=== PATIENT | female | born 1955 | race Hispanic/Latino ===

== ENCOUNTER 2016-09-07 20:07 | Observation (INO) | payer SELFPAY ==
[~2016-09-07] VITALS: Ht 162.6 cm; Wt 73.2 kg
[2016-09-07 20:14] VITALS: BP 133/91; PULSE 72; RESP 16; O2SAT 100
--- NOTE | 2016-09-07 20:42 | DRSVH ---
PROCEDURE: X-RAY CHEST ONE VIEW, PORTABLE ([id number]) INDICATIONS: chest pain TECHNIQUE: One view of the chest was acquired. COMPARISON: None. FINDINGS: Surgical changes and devices: None. Lungs and pleura: No pleural effusions or pneumothorax. Lungs are clear. Mediastinum: Mediastinal contours appear normal. Heart size is normal. Bones and chest wall: No suspicious bony lesions. Overlying soft tissues appear unremarkable. IMPRESSION: No acute cardiopulmonary disease process. Dictated by: Opal Benjamin MD, PhD on 09/07/2016 at 20:41 Approved by: Opal Benjamin MD, PhD on 09/07/2016 at 20:41
--- NOTE | 2016-09-07 20:43 | ED.REPORT ---
HPI-Chest Pain 40 and Over Date of Service Sep 07, 2016 ED Provider: Kelli Martinez MD A 61 year old female with no pertinent medical history presents to the ED complaining of chest pain and shortness of breath. The pt began experiencing these symptoms approximately one hour prior to arrival. She was speaking to family at the time, then became dizzy and shaky with the chest pain. She also admits to diaphoresis. She describes her chest pain as "pressure." The pt denies nausea, vomiting, or diarrhea. Nursing Notes Stated Complaint: CHEST PAIN, BREATHING DIFFICULTY Chief Complaint: Chest Pain Nursing Notes Reviewed: Yes Allergies: Coded Allergies: No Known Allergies (Unverified , 09/07/16) General Time Seen by MD: 20:43 Chief Complaint Chest pain Hx Obtained From: Patient, Other family... Arrived By: Walk-in Sudden in Onset?: Yes Onset Occurred: 31 - 45 minutes ago Recent Healthcare: No recent doctor visit, No recent hospitalization Similar Sx Previous: No Past Medical History Past Medical History denies Past Surgical History none reported Smoking History Unknown if Ever Smoker Ambulatory Status Independent Review of Systems Constitutional: Denies: Chills, Fever Respiratory: Reports: Shortness of breath, Denies: Non-productive cough Cardiovascular: Reports: Chest pain GI: Denies: Abdominal pain, Diarrhea, Nausea, Vomiting Musculoskeletal: Denies: Back pain, Neck pain Skin: Reports Diaphoresis, Denies Rash Neurologic: Reports: Dizziness, Shaking Complete sys rev & neg: except as marked. Physical Exam Initial Vital Signs Vital Signs (First) Date Time Temp Pulse Resp B/P Pulse Ox O2 Delivery O2 Flow Rate FiO2 09/07/16 20:14 36.5 72 16 133/91 100 Room Air 09/07/16 21:47 2 Initial VS: Reviewed General/Constitutional: Awake, Alert Respiratory / Chest: Atraumatic, Breath sounds NL, Breath sounds = bilat, No respiratory distress left sided chest tenderness with palpation Cardiovascular: Heart rate NL, Regular rhythm, Heart sounds NL Abdomen: Atraumatic, Soft, No guarding, No rebound mild epigastric tenderness Neck: Atraumatic, Supple, Full range of motion Back: Atraumatic, Full range of motion Lower Extremity / Pelvis / MS: Atraumatic, Full range of motion Skin: Atraumatic, Color NL, No rash, Warm, Dry Neurologic: Oriented X3, Speech NL, No motor deficits, No sensory deficits Psychiatric: Affect NL, Mood NL Head / Eyes: Atraumatic, Normocephalic, PERRL, EOMI ENT: Atraumatic, Airway patent, Mucous membranes moist Upper Extremity / MS: Atraumatic, Full range of motion Interpretation & Diagnostics Lab Results Interpretation Result Diagram: 09/07/16203909/07/162039 Test 09/07/16 20:40 White Blood Count 8.8th/mm3 (3.8-10.1) Red Blood Count 4.43mil/mm3 (3.90-5.20) Hemoglobin 14.4g/dL (12.0-15.6) Hematocrit 41.7% (35.0-46.0) Mean Corpuscular Volume 94.1fL (81-100) Mean Corpuscular Hemoglobin 32.5pg (27.0-35.0) Mean Corpuscular Hemoglobin Concent 34.5% (32.0-37.0) Red Cell Distribution Width 13.1% (12.3-15.4) Platelet Count 236bil/L (150-400) Neutrophils (%) (Auto) 35.9% (40-74) Lymphocytes (%) (Auto) 46.7% (14-46) Monocytes (%) (Auto) 6.0% (4-12) Eosinophils (%) (Auto) 10.4% (0-5) Basophils (%) (Auto) 0.7% (0-3) Prothrombin Time 9.9sec (8.1-12.5) Prothromb Time International Ratio 0.93ratio Activated Partial Thromboplast Time 25.7sec (22.8-33.0) Sodium Level 139mEq/L (134-144) Potassium Level 4.3mEq/L (3.5-5.2) Chloride Level 104mEq/L (97-108) Carbon Dioxide Level 21mmol/L (18-29) Blood Urea Nitrogen 18mg/dL (8-27) Creatinine 0.74mg/dL (0.57-1.00) Estimat Glomerular Filtration Rate 114mL/min (>59) Glucose Level 174mg/dL (60-99) Calcium Level 10.3mg/dL (8.5-10.1) Magnesium Level 2.0mg/dL (1.6-2.6) Total Bilirubin 0.3mg/dL (0.0-1.2) Aspartate Amino Transf (AST/SGOT) 36U/L (0-50) Alanine Aminotransferase (ALT/SGPT) 25U/L (0-32) Alkaline Phosphatase 124U/L (25-165) Total Protein 7.6g/dL (6.4-8.4) Albumin 4.0g/dL (3.4-5.0) ECG Interpretation ECG Interpretation: normal sinus rhythm with a rate of 76 Time: 20:31 Interpreted by: ED physician X-Ray Chest Interpretation Chest Xray Interpretation: IMPRESSION: No acute cardiopulmonary disease process. Dictated by: Opal Benjamin MD, PhD on 09/07/2016 at 20:41 Approved by: Opal Benjamin MD, PhD on 09/07/2016 at 20:41 Interpretation / Wet Read by: Interpret - Radiologist Re-Eval/Medical Decision Med Decision/Clinical Course This patient presents with concerning chest pain she has no significant past medical history. Her pain was relieved with nitroglycerin. The patient may also be borderline diabetic which would be an additional risk factor. The patient's initial troponin was negative. She will be admitted for rule out and further evaluation. Source of Hx: Old records Time of Eval: 22:48 Patient Status: Condition improved Re-Evaluation/Progress Note: Pt rechecked, who is resting comfortably. She is informed of her lab and radiology results, as well as the need for admission. The pt understands and agrees with the plan. All questions are addressed at this time. Consultation : Referral / Consult Name: Carolina Conde MD Consulted With: Hospitalist Call Returned at: 22:55 Unhairer: Agrees with eval, Agrees with plan, Accepts admit Note: Spoke with Dr. Conde, hospitalist, regarding pt's case. Dr. Conde agrees with the evaluation and agrees to admit the pt. Counseled Regarding: Diagnosis, Lab results, Need for admission Discharge & Departure Primary Impression: Chest pain Chest pain type: unspecified Qualified Code: R07.9 - Chest pain, unspecified Disposition: ADMITTED TO HOSPITAL Discharge Condition All VS Reviewed: Yes Condition: Stable Scribe Attestation Portions of this note were transcribed by Ronny Evans. I, Dr. Martinez personally performed the history, physical exam and medical decision-making; I reviewed and confirmed the accuracy of the information in the transcribed note. Signed by: Wade Orantes, 09/07/2016, 22:57 Kelli Martinez MD Sep 07, 2016 20:43 RONNY EVANS Sep 07, 2016 21:16
[2016-09-07 21:01] LABS: BASOPHILS % (AUTO) 0.7 % (0-3); EOSINOPHILS % (AUTO) 10.4 % (0-5); Mean Corpuscular Hemoglobin 32.5 pg (27.0-35.0); Mean Corpuscular Volume 94.1 fL (81-100); NEUTROPHILS % (AUTO) 35.9 % (40-74); Platelet Count 236 bil/L (150-400)
[2016-09-07] MEDS ORDERED: 0.9% Sodium Chloride 500 ML IV ONE (21:10)
[2016-09-07 21:12] LABS: TROPONIN T 0.01 ug/L (0.0-0.011)
[2016-09-07 21:47] VITALS: BP 125/89; PULSE 75; RESP 16; O2SAT 100
[2016-09-07 22:04] VITALS: BP 115/81; PULSE 64; RESP 18; O2SAT 99
[2016-09-07] MEDS ORDERED: Nitroglycerin 2% 1 Gm Ointment TOPICAL ONE ×2 (22:20→23:10)
[2016-09-07] MEDS ORDERED: Alum-Mag Hydrox-Simeth 30 mL Suspension PO PRN (23:10)
[2016-09-07] MEDS ORDERED: Ondansetron 2 mg/mL 2 mL Inj IVPUSH PRN (23:10)
[2016-09-07] MEDS ORDERED: Polyethylene Glycol (PEG) 17 Gm Powder PO PRN (23:10)
--- NOTE | 2016-09-07 23:19 | PCM.HPMED ---
Subjective Date of Service Sep 07, 2016 Primary Provider: Admitting Physician: Primary Care Physician: Odilia Attending Physician: Admit Status: From the Emergency Department, 23-Hour Observation, [facility] Telemetry Chief Complaint: Chest pain History of Present Illness: This is a 61-year-old female who has no significant past medical history who presents with onset earlier today about an hour ago of substernal chest pain she noted some diaphoresis with it along with some shortness of breath. He had some history of 2 or 3 episodes in the past few weeks of similar. She notes it happens when she is exerting herself. Such as walking upstairs. She has never experienced this at rest. She has had no nausea or vomiting or abdominal pain. Patient denies cough or any fevers or chills. He does note that she felt a bit lightheaded when this occurred. Review of Systems: All other review of systems are reviewed and are negative except for as in history of present illness. Allergies Coded Allergies: No Known Allergies (Unverified , 09/07/16) Home Medications None PMH Denies Surgical History Denies Family History Denies history of cardiovascular disease. Social History Hx Alcohol Use: No Hx Substance Use: No Smoking Status: Unknown if Ever Smoker Living Arrangement: with Family Exam Vital Signs Vital Sign - Last Date Time Temp Pulse Resp B/P Pulse Ox O2 Delivery O2 Flow Rate FiO2 09/07/16 22:04 64 18 115/81 99 Nasal Cannula 2 09/07/16 20:14 36.5 Exam Constitutional: Middle-aged woman in no acute distress but appears anxious Head: Normocephalic atraumatic Eyes: PERRLA DC EOMI Mouth: No lesions Neck: No adenopathy crest plus over 4 without bruits Chest: Clear to auscultation Cor: Regular rate and rhythm S1-S2 without murmur Abdomen: Soft nontender bowel sounds present Extremities: No pedal edema Skin: No rashes Psych: Appears anxious Neuro: Alert and oriented 3, motor and sensory are intact bilaterally. Lab and Diagnostics Labs Laboratory Tests 72 Hours Test 09/07/16 20:40 White Blood Count 8.8th/mm3 (3.8-10.1) Red Blood Count 4.43mil/mm3 (3.90-5.20) Hemoglobin 14.4g/dL (12.0-15.6) Hematocrit 41.7% (35.0-46.0) Mean Corpuscular Volume 94.1fL (81-100) Mean Corpuscular Hemoglobin 32.5pg (27.0-35.0) Mean Corpuscular Hemoglobin Concent 34.5% (32.0-37.0) Red Cell Distribution Width 13.1% (12.3-15.4) Platelet Count 236bil/L (150-400) Neutrophils (%) (Auto) 35.9% (40-74) Lymphocytes (%) (Auto) 46.7% (14-46) Monocytes (%) (Auto) 6.0% (4-12) Eosinophils (%) (Auto) 10.4% (0-5) Basophils (%) (Auto) 0.7% (0-3) Sodium Level 139mEq/L (134-144) Potassium Level 4.3mEq/L (3.5-5.2) Chloride Level 104mEq/L (97-108) Carbon Dioxide Level 21mmol/L (18-29) Blood Urea Nitrogen 18mg/dL (8-27) Creatinine 0.74mg/dL (0.57-1.00) Estimat Glomerular Filtration Rate 114mL/min (>59) Glucose Level 174mg/dL (60-99) Calcium Level 10.3mg/dL (8.5-10.1) Magnesium Level 2.0mg/dL (1.6-2.6) Total Bilirubin 0.3mg/dL (0.0-1.2) Aspartate Amino Transf (AST/SGOT) 36U/L (0-50) Alanine Aminotransferase (ALT/SGPT) 25U/L (0-32) Alkaline Phosphatase 124U/L (25-165) Troponin T 0.010ug/L (0.0-0.011) Total Protein 7.6g/dL (6.4-8.4) Albumin 4.0g/dL (3.4-5.0) Result Diagram: 09/07/16203909/07/162039 X-Rays, CTs and MRIs Patient Name: SENTHIL CUEVAS MR#: [id number] Location: [facility] [place] Ordering Phys: RICHARD FOUNTAIN MD Date of Service: 09/07/162017 PROCEDURE: X-RAY CHEST ONE VIEW, PORTABLE ([id number]) INDICATIONS: chest pain TECHNIQUE: One view of the chest was acquired. COMPARISON: None. FINDINGS: Surgical changes and devices: None. Lungs and pleura: No pleural effusions or pneumothorax. Lungs are clear. Mediastinum: Mediastinal contours appear normal. Heart size is normal. Bones and chest wall: No suspicious bony lesions. Overlying soft tissues appear unremarkable. IMPRESSION: No acute cardiopulmonary disease process. Dictated by: Opal Benjamin MD, PhD on 09/07/2016 at 20:41 Approved by: Opal Benjamin MD, PhD on 09/07/2016 at 20:41 12-lead ECG Not available for my viewing at the time of this dictation please see ER MDs note. Assessment & Plan # Chest pain, acute, present on admission Check serial troponins Nuclear pharmacological stress test in a.m. Sublingual nitroglycerin when necessary Check lipid panel # Elevated blood sugar, acute, present on admission We will check 4 times a day blood sugars and check hemoglobin A1c. She has no diagnosis of diabetes. # DVT prophylaxis Subcutaneous prophylactic heparin # CODE STATUS Patient is full code. Pain Evaluation: Adequate Pain Control GI Prophylaxis: H2 olga lidia VTE Prophylaxis: Sub-Q Heparin (Unfractionated) Resuscitation Status: CPR: Attempt Resuscitation Time spent 60 minutes Carolina Conde MD Sep 07, 2016 23:19
[2016-09-07 23:22] VITALS: BP 117/84; PULSE 68; RESP 16; O2SAT 99
[2016-09-07 23:36] LABS: INR 0.93 ratio
[2016-09-08] VITALS (8 sets, daily range): BP systolic 121–129; BP diastolic 79–86; PULSE 61–77; RESP 16–22; O2SAT 98–99
[2016-09-08 01:23] LABS: APPEARANCE,URINE CLEAR (CLEAR,HAZY); COLOR,URINE YELLOW (YELLOW); PH,URINE 6.5 (5.0-8.0)
[2016-09-08 01:24] LABS: OCCULT BLOOD,URINE NEGATIVE (NEGATIVE); UROBILINOGEN,URINE NORMAL (NORMAL)
--- NOTE | 2016-09-08 01:28 | NUR ---
admission patient admitted. translater used via ipad denies chest pain. reviewed stress test in am. answered questions. family at bedside care ongoing
[2016-09-08] MEDS: Heparin 5,000 Unit/mL Inj SUBQ SCH ×3 (01:40→17:57)
[2016-09-08 07:05] LABS: TROPONIN T < 0.010 ug/L (0.0-0.011)
[2016-09-08] MEDS ORDERED: Influenza (Adult) Vaccine 0.5 mL Syringe IM ONE (08:30)
[2016-09-08] MEDS ORDERED: Famotidine Inj 20 MG in IV Premix 1 EACH IV SCH (08:30)
--- NOTE | 2016-09-08 15:55 | PCM.PNMED ---
Subjective Date of Service Sep 08, 2016 Subjective Patient reports she is very tired this morning. Pt denies any chest pain, shortness of breath, diaphoresis, nausea, vomiting, or diarrhea. She denies any fevers or chills. Pt denies any overnight events. Exam Vital Signs Vital Sign - Last Date Time Temp Pulse Resp B/P Pulse Ox O2 Delivery O2 Flow Rate FiO2 09/08/16 10:03 36.4 62 16 122/86 98 Room Air 09/07/16 23:22 2 Intake and Output 09/07/16 09/07/16 09/08/16 Cumulative From/Thru 15:00 23:00 07:00 09/07/16 20:14 - 09/08/16 06:40 Intake Total 500 ml 200 ml 700 ml Output Total 450 ml 450 ml Balance 500 ml -250 ml 250 ml Intake Oral 200 ml 200 ml IV Total 500 ml 500 ml Output Urine Total 450 ml 450 ml Exam General: No acute distress, well-developed, well-nourished, appropriately interactive HEENT: Normocephalic, atraumatic Pupils equal, round, and reactive to light and accommodation. Anicteric sclerae, moist conjunctivae Oropharynx with moist mucosa. Neck: Supple with full range of motion. Cardiovascular: Regular rate and rhythm with no murmurs, rubs, or gallops appreciated Pulmonary: Clear to auscultation bilaterally with no crackles, wheezes, or rhonchi. Normal respiratory effort with no use of accessory muscles. Abdomen: Bowel tones present. Soft, nontender, nondistended. Extremities: No clubbing, cyanosis, edema, appreciated. Skin: Normal temperature, turgor, and texture; no rash, ulcers, or subcutaneous nodules appreciated. Psychiatric: Normal mood and affect. Alert and oriented to person, place, and time. IVs and Medications Medications Reviewed: Medications were reviewed in detail Lab and Diagnostics Result Diagram: 09/07/16203909/07/162039 X-Rays, CTs and MRIs Patient Name: SENTHIL CUEVAS MR#: [id number] Location: [facility] [place] Ordering Phys: RICHARD FOUNTAIN MD Date of Service: 09/07/162017 PROCEDURE: X-RAY CHEST ONE VIEW, PORTABLE ([id number]) INDICATIONS: chest pain TECHNIQUE: One view of the chest was acquired. COMPARISON: None. FINDINGS: Surgical changes and devices: None. Lungs and pleura: No pleural effusions or pneumothorax. Lungs are clear. Mediastinum: Mediastinal contours appear normal. Heart size is normal. Bones and chest wall: No suspicious bony lesions. Overlying soft tissues appear unremarkable. IMPRESSION: No acute cardiopulmonary disease process. Dictated by: Opal Benjamin MD, PhD on 09/07/2016 at 20:41 Approved by: Opal Benjamin MD, PhD on 09/07/2016 at 20:41 12-lead ECG Not available for my viewing at the time of this dictation please see ER MDs note. Assessment & Plan Acute substernal chest pain, present on admission, resolved -Pt denies any chest pain currently -Troponin negative x 3 -Lipid panel demonstrating elevated triglycerides,LDL cholesterol. -Stress test to occur today, resting portion to occur tomorrow(09/09/16) -Morphine for pain control -PRN EKG if pain Elevated blood sugar without a history of diabetes mellitus, acute, present on admission -Hemoglobin A1c pending -Will continue to monitor -If A1C is elevated recommend outpatient follow up for management PCP: Pt does not have a PCP, in need of information/resources. DVT prophylaxis--Subcutaneous prophylactic heparin CODE STATUS--Patient is full code. GI Prophylaxis: H2 olga lidia VTE Prophylaxis: Sub-Q Heparin (Unfractionated) Resuscitation Status: CPR: Attempt Resuscitation Attending Statement The patient was seen and examined together with Dr. Giordano on 09/08/2016 and I agree with the history, exam and plan as outlined in the note above. Annabella Giordano DO Sep 08, 2016 10:28 Rogelio Chong MD Sep 08, 2016 20:50
--- NOTE | 2016-09-08 15:59 | NUR ---
Stress test Stress test this AM utilizing lang interpreter. Family at bedside. Returned from testing with no CP. Tele monitoring continues. Plan is for NPO after midnight and 2nd part of stress test in AM.
--- NOTE | 2016-09-08 16:15 | NUR ---
Social Work-attempted assessment: Data:EMR reviewed. Pt is on day 1 of hospitalization for chest pain per H&P. Pt does not have PCP or insurance. SW attempted to see pt, but pt currently off the floor for stress test. SW to follow up tomorrow to complete assessment. SW will continue to follow. Assessment:Pt who is independent at baseline. Plan:Pt to discharge home when medically stable. SW to follow up regarding no PCP or insurance. SW will continue to follow. AVERY Saldaña
[2016-09-09 00:01] VITALS: PULSE 66
[2016-09-09] MEDS: Heparin 5,000 Unit/mL Inj SUBQ SCH ×2 (00:21→07:50)
[2016-09-09 01:45] VITALS: BP 118/76; PULSE 60; RESP 20; O2SAT 99
--- NOTE | 2016-09-09 04:04 | NUR ---
Chest pain/Discomfort Pt had an episode of chest pain around 0028 03/16. Administered morphine 2mg PRN for pain. Pt states relieved of the pain. Pt has been prep and on NPO since mn. Denies sob, n/v and abd discomfort. VSS, no abnormal rhythm throughout the shift per monitor selena. Will continue to monitor.
[2016-09-09 07:35] LABS: EOSINOPHILS % (AUTO) 13.5 % (0-5); MONOCYTES % (AUTO) 6.9 % (4-12); Mean Corpuscular Hemoglobin 31.5 pg (27.0-35.0); Mean Corpuscular Volume 93.3 fL (81-100); NEUTROPHILS % (AUTO) 28.9 % (40-74); Platelet Count 208 bil/L (150-400)
[2016-09-09 08:00] VITALS: PULSE 65
--- NOTE | 2016-09-09 08:00 | NUR ---
Flu vaccine Discussed flu vaccine with pt who agrees to get it after stress test done this morning.
--- NOTE | 2016-09-09 09:14 | NUR ---
Pt off unit Pt off unit to nuclear med for stress test, central service tech notified.
[2016-09-09 10:44] VITALS: BP 128/83; PULSE 62; RESP 22; O2SAT 99
--- NOTE | 2016-09-09 11:30 | NUR ---
Social Work-initial assessment: Data:EMR reviewed. Pt is a 61 y/o female who was admitted on 09/07/16 for chest pain per H&P. Pt does not have insurance or PCP. EMR Reviewed. RCA to meet with pt. SW met with pt and son in law at bedside to discuss discharge planning, SW role explained. Pt resides at home with family where she remains independent with ADLS. Pt to have resting part of stress test today. Per RN notes, pt has been up independent in her room. SW discussed with pt and son in law that pt does not have insurance or PCP. Son in law confirms that this information is correct. SW provided son in law with [facility] application and also explained that [facility] would likely be the best place for PCP follow up because they base this on a sliding scale. Son in law agreeable. Pt's family to provide transport home at discharge. SW provided phone number and plan on white board in room. No anticipated discharge needs. SW will continue to follow if needs arise. Assessment:Pt who is independent at baseline. Plan:Pt to discharge home with family support when medically stable. SW provided [facility] application and also explained about [facility]. No anticipated discharge needs. SW will continue to follow if needs arise. AVERY Saldaña
--- NOTE | 2016-09-09 12:19 | DRSVH ---
PROCEDURE: TWO DAY STRESS TEST INDICATIONS: Ms. Garner is a 61-year-old female, hospitalized with symptoms of chest disc omfort. Nuclear cardiac stress study is performed to exclude significant underlying ischemic heart d isease. The patient had symptoms of chest discomfort prior to the exam. A pharmacologic study was p erformed instead of an exercise study for uncertain reasons. The patient had a normal pharmacologic response to the Lexiscan injection and had symptoms of abdominal discomfort and dizziness that resolv ed with intravenous aminophylline. The patient had no complaints of chest pain or diagnostic EKG zechariah nges. COMPARISON: None. PROCEDURE: This patient received 22.5 mCi of technetium-99 tetrofosmin for the stress portion of the examination. She returned one day later for the resting portion of the examination, receiving an ad ditional 20.9 mCi. FINDINGS: Raw Data: Raw data images show overall good image quality. I do not appreciate any significant isabela fact or interference. Quantitative Gated SPECT Imaging: Gated images demonstrate a relatively small ventricle with an end diastolic volume of 57 cc. Overall ejection fraction is estimated at 71%. No regional wall motion a bnormalities are identified. Quantitative Perfusion SPECT Imaging: Stress and rest myocardial perfusion imaging shows a normal di stribution of radioisotope throughout the myocardium. No significant perfusion abnormalities are joe ntified that would suggest ischemia or scar. IMPRESSION: 1. Normal nuclear cardiac stress study as noted above. This exam suggests a low likelihood for the presence of significant underlying obstructive coronary artery disease. Dictated by: Ollie Moreno M.D. on 09/09/2016 at 11:55 Transcribed by: MILAN on 10/17/2016 at 22:20 Approved by: Ollie Moreno M.D. on 10/28/2016 at 17:43
--- NOTE | 2016-09-09 12:34 | PCM.DIMED ---
Annabella Giordano DO 09/09/16 1234: Discharge Instructions Date of Service Sep 09, 2016 Dates of Hospitalization Sep 07, 2016 at 23:32 Discharge Diagnosis Discharge Diagnosis Acute substernal chest pain, Elevated blood sugar without a history of diabetes mellitus, Test Results You had a stress test for your heart, which was normal. Diet No restrictions Activity No restrictions Call your provider Shortness of breath, Chest pain, Weakness (unilateral) Patient Instructions Your stress test for your heart was normal. I recommend that you establish care with a doctor at [facility]. You need to have a primary care doctor to manage and monitor your health. If you have concerning symptoms such as worsening chest pain, shortness of breath or weakness seek medical attention. Follow-up Provider: [facility] Follow-up with PCP in: 1 week Rogelio Chong MD 09/10/16 0956: Annabella Giordano DO Sep 09, 2016 12:34 Rogelio Chong MD Sep 10, 2016 09:56
--- NOTE | 2016-09-09 12:54 | NUR ---
Social Work-discharge: Data:EMR reviewed. Pt is on day 2 of hospitalization for chest pain per H&P. Pt is medically stable to discharge home today. [facility] application has been provided and recommendation for pt to go to [facility] follow[facility]. Pt's family to provide transport home today. No discharge needs identified. All updated and agreeable to plan. Assessment:pt who is independent at baseline. Plan:Pt to discharge home today via POV. [facility] application has been provided. No discharge needs identified. All updated and agreeable to plan. AVERY Saldaña
--- NOTE | 2016-09-09 15:10 | NUR ---
DISCHARGE Pt discharged this afternoon at 1430, accompanied off unit in w/c by family and CUSTOMER SUPPLY CHAIN ANALYST. Vital signs stable, denies pain and in no apparent distress. IV dc'd intact and all belongings returned. All instructions discussed with pt and family with aid of lining sewer for diet, activity, medications, prescriptions, and follow up with [facility] to establish PCP for ongoing care. Pt reported understanding.
--- NOTE | 2016-09-10 17:45 | PCM.DC.MED ---
Discharge Summary Date of Service Sep 10, 2016 Dates of Hospitalization Date of Hospital Admission Sep 07, 2016 at 23:32 Date of Discharge: Sep 09, 2016 Providers: Admitting Physician: Carolina Conde MD Primary Care Physician: Odilia Attending Physician: Carolina Conde MD Diagnosis at Time of Discharge Diagnosis at Time of Discharge Acute substernal chest pain, Elevated blood sugar without a history of diabetes mellitus, Procedures XRay, CTs & MRIs PROCEDURE: X-RAY CHEST ONE VIEW, PORTABLE ([id number]) FINDINGS: Surgical changes and devices: None. Lungs and pleura: No pleural effusions or pneumothorax. Lungs are clear. Mediastinum: Mediastinal contours appear normal. Heart size is normal. Bones and chest wall: No suspicious bony lesions. Overlying soft tissues appear unremarkable. IMPRESSION: No acute cardiopulmonary disease process. Dictated by: Opal Benjamin MD, PhD on 09/07/2016 at 20:41 Approved by: Opal Benjamin MD, PhD on 09/07/2016 at 20:41 Other Diagnostics Was called and informed by Cardiology that Stress Test was negative. No formal report available at time of this note. Brief History Per Dr Conde's H&P "This is a 61-year-old female who has no significant past medical history who presents with onset earlier today about an hour ago of substernal chest pain she noted some diaphoresis with it along with some shortness of breath. He had some history of 2 or 3 episodes in the past few weeks of similar. She notes it happens when she is exerting herself. Such as walking upstairs. She has never experienced this at rest. She has had no nausea or vomiting or abdominal pain. Patient denies cough or any fevers or chills. She does note that she felt a bit lightheaded when this occurred." Hospital Course 61-year-old female who has no significant past medical history who presented with onset of substernal chest pain with exertion she noted some diaphoresis with it along with some shortness of breath.During hospitalization pt underwent stress test. We were contacted and informed that test was normal. No formal report currently available. By time of discharge pt denied any chest pain or diaphoresis. Pt was discharged in stable condition, home with her family. Pt was advised to establish care with a community primary care provider. Acute substernal chest pain -Troponin negative x 3 -Lipid panel demonstrating elevated triglycerides,LDL cholesterol. -Stress test normal Elevated blood sugar without a history of diabetes mellitus, acute, present on admission -Hemoglobin A1c 5.8 PCP: Pt does not have a PCP, in need of information/resources. CODE STATUS--Patient is full code. Exam Vital Signs (Last) Date Time Temp Pulse Resp B/P Pulse Ox O2 Delivery O2 Flow Rate FiO2 09/09/16 10:44 37.1 62 22 128/83 99 Nasal Cannula 1.00 Exam General: No acute distress, well-developed, well-nourished, appropriately interactive HEENT: Normocephalic, atraumatic Pupils equal, round, and reactive to light and accommodation. Anicteric sclerae, moist conjunctivae Oropharynx with moist mucosa. Neck: Supple with full range of motion. Cardiovascular: Regular rate and rhythm with no murmurs, rubs, or gallops appreciated Pulmonary: Clear to auscultation bilaterally with no crackles, wheezes, or rhonchi. Normal respiratory effort with no use of accessory muscles. Abdomen: Bowel tones present. Soft, nontender, nondistended. Extremities: No clubbing, cyanosis, edema, appreciated. Skin: Normal temperature, turgor, and texture; no rash, ulcers, or subcutaneous nodules appreciated. Psychiatric: Normal mood and affect. Alert and oriented to person, place, and time. Test 09/07/16 20:40 09/08/16 01:13 09/08/16 06:18 09/09/16 06:40 Prothrombin Time 9.9sec (8.1-12.5) Prothromb Time International Ratio 0.93ratio Activated Partial Thromboplast Time 25.7sec (22.8-33.0) Hemoglobin A1c 5.8% (4.8-5.6) Magnesium Level 2.0mg/dL (1.6-2.6) Urine Color Yellow (YELLOW) Urine Appearance Clear (CLEAR,HAZY) Urine pH 6.5 (5.0-8.0) Urine Specific [place] 1.015 (1.003-1.035) Urine Protein Negativemg/dL (NEG,TRACE) Urine Glucose (UA) Negativemg/dL (NEGATIVE) Urine Ketones Negativemg/dL (NEGATIVE) Urine Occult Blood Negative (NEGATIVE) Urine Nitrite Negative (NEGATIVE) Urine Bilirubin Negative (NEGATIVE) Urine Urobilinogen Normalmg/dL (NORMAL) Urine Leukocyte Esterase Trace (NEGATIVE) Urine RBC 0-2/hpf (0-2) Urine WBC 0-5/hpf (0-5) Urine Epithelial Cells Occasional/hpf (NONE-MOD) Urine Crystals None seen (NONE SEEN) Urine Bacteria None/hpf (NONE-FEW) Urine Hyaline Casts None/lpf (NONE) Urine Granular Casts None seen (NONE SEEN) Urine Waxy Casts None seen (NONE SEEN) Urine Red Blood Cell Casts None seen (NONE SEEN) Urine White Blood Cell Casts None seen (NONE SEEN) Urine Mucus None seen (None Seen) Urine Trichomonas None seen (NONE SEEN) Urine Yeast None (NONE SEEN) Urine Culture Reflexed Indicated Troponin T < 0.010ug/L (0.0-0.011) Triglycerides Level 230mg/dL (0-149) Cholesterol Level 193mg/dL (100-199) LDL Cholesterol, Calculated 107.000mg/dL (0-99) VLDL Cholesterol 46.000mg/dL HDL Cholesterol 40mg/dL (>39) Cholesterol/HDL Ratio 4.83 (0.0-4.4) White Blood Count 7.1th/mm3 (3.8-10.1) Red Blood Count 4.47mil/mm3 (3.90-5.20) Hemoglobin 14.1g/dL (12.0-15.6) Hematocrit 41.7% (35.0-46.0) Mean Corpuscular Volume 93.3fL (81-100) Mean Corpuscular Hemoglobin 31.5pg (27.0-35.0) Mean Corpuscular Hemoglobin Concent 33.8% (32.0-37.0) Red Cell Distribution Width 13.0% (12.3-15.4) Platelet Count 208bil/L (150-400) Neutrophils (%) (Auto) 28.9% (40-74) Lymphocytes (%) (Auto) 49.4% (14-46) Monocytes (%) (Auto) 6.9% (4-12) Eosinophils (%) (Auto) 13.5% (0-5) Basophils (%) (Auto) 1.0% (0-3) Sodium Level 141mEq/L (134-144) Potassium Level 5.1mEq/L (3.5-5.2) Chloride Level 108mEq/L (97-108) Carbon Dioxide Level 22mmol/L (18-29) Blood Urea Nitrogen 15mg/dL (8-27) Creatinine 0.62mg/dL (0.57-1.00) Estimat Glomerular Filtration Rate 139mL/min (>59) Glucose Level 101mg/dL (60-99) Calcium Level 9.9mg/dL (8.5-10.1) Total Bilirubin 0.6mg/dL (0.0-1.2) Aspartate Amino Transf (AST/SGOT) 45U/L (0-50) Alanine Aminotransferase (ALT/SGPT) 27U/L (0-32) Alkaline Phosphatase 90U/L (25-165) Total Protein 6.8g/dL (6.4-8.4) Albumin 3.7g/dL (3.4-5.0) Discharge Medications No Active Prescriptions or Reported Meds Followup Plan Disposition: Home with family Follow-up plan Estab care with PCP Discharge Diet: No restrictions Discharge Activity: No restrictions Patient Instructions Your stress test for your heart was normal. I recommend that you establish care with a doctor at [facility]. You need to have a primary care doctor to manage and monitor your health. If you have concerning symptoms such as worsening chest pain, shortness of breath or weakness seek medical attention. Follow-up Provider: [facility] Follow-up with PCP in: 1 week Annabella Giordano DO Sep 10, 2016 17:45
== END 2016-09-09 13:52 | disposition home or self-care (01) ==
LOC: SED 20:07 → MPC 23:32
PROVIDERS: ADMIT Specialist; ATTEND Specialist
DX: R07.9 Chest pain, unspecified (principal); R73.9 Hyperglycemia, unspecified; R06.02 Shortness of breath; R61 Generalized hyperhidrosis
CPT/HCPCS: 36415; 71010; 78452; 80053; 80061; 81000; 83036; 83735; 84484; 85025; 85610; 85730; 87086; 87088; 93017; 96374; 96375; 96376; 99285; A9502; G0378; J0280; J1644; J2270; J2405; J2785; J7040